=== PATIENT | male | born 1965 | race Hispanic/Latino ===

== ENCOUNTER 2020-10-27 08:01 | Inpatient (IN) | payer BC ==
[2020-10-27] VITALS (13 sets, daily range): BP systolic 107–130; BP diastolic 40–87
[~2020-10-27] VITALS: Ht 167.6 cm; Wt 130.6 kg
[2020-10-27 12:04] LABS: ABG BASE EXCESS -0.7 mmol/L (-2.0-3.0); ABG HCO3 23.9 mmol/L (21.0-28.0); ABG OXYGEN SATURATION 93.6 % (95.0-99.0); ABG PCO2 40 mmHg (35-48)
[2020-10-27] MEDS ORDERED: DIATR MEGLU/DIATRIZOATE SODIUM 30 ML BOTTLE ONE (12:23)
[2020-10-27 12:29] LABS: HEMATOCRIT 23.6 % (42-54); MEAN CORPUSCULAR HEMOGLOBIN 30.4 pg (27.0-33.0); MEAN CORPUSCULAR HGB CONC 31.8 g/dL (32.0-36.0); MEAN CORPUSCULAR VOLUME 95.5 fL (79-99); NUCLEATED RED BLOOD CELLS 0.4 % (0.0-0.19); PLATELET COUNT (AUTO) 126 K/uL (130-400); RED BLOOD CELL COUNT(AUTO) 2.47 MIL/uL (4.50-6.20); RED CELL DISTRIBUTION WIDTH 20.3 % (11.0-15.5); WHITE BLOOD COUNT (AUTO) 7.7 K/uL (4.8-10.8)
[2020-10-27] MEDS: LACTATED RINGERS 1000ML 1,000 ML IV SCH (12:30)
[2020-10-27 12:45] LABS: CREATININE 0.9 mg/dL (0.5-1.5); POTASSIUM 4.3 mmol/L (3.5-5.1)
[2020-10-27 12:49] LABS: BILIRUBIN,TOTAL 0.5 mg/dL (0.2-1.0)
[2020-10-27 13:47] LABS: BAND NEUTROPHILS % (MANUAL) 6 % (0-2); LYMPHOCYTES % (MANUAL) 15 % (22-44); MONOCYTES % (MANUAL) 8 % (2-9); SEGMENTED NEUTROPHILS % 71 % (40-70)
[2020-10-27 13:48] LABS: MAN.DIFF COMMENT-IMPRESSION MANUAL DIFFERENTIAL
[2020-10-27 13:49] LABS: PLATELET MORPHOLOGY COMMENT DECREASED
[2020-10-27] MEDS: DIAZEPAM 5 MG TABLET PEG SCH ×2 (14:00→22:00)
[2020-10-27] MEDS: METRONIDAZOLE 500MG/100ML BAG 100 ML IVPB SCH ×2 (14:49→23:51)
[2020-10-27] MEDS: CEFEPIME HCL 2 GM VIAL IVP SCH ×2 (14:50→21:54)
[2020-10-27 15:01] LABS: FIBRINOGEN 632 mg/dL (180-350)
[2020-10-27] MEDS: LEVOFLOXACIN 750 MG/D5W 150 ML 150 ML IV SCH (17:52)
[2020-10-27 20:05] LABS: ABG BASE EXCESS 4.5 mmol/L (-2.0-3.0); ABG HCO3 28.8 mmol/L (21.0-28.0); ABG OXYGEN SATURATION 91.4 % (95.0-99.0); ABG PCO2 42 mmHg (35-48)
[2020-10-27] MEDS ORDERED: CLINIMIX-E4.25%AA/D5+LYT2000ML 2,000 ML IV SCH (21:00)
[2020-10-27] MEDS: ASCORBIC ACID 500 MG TAB PEG SCH (21:00)
[2020-10-27] MEDS: ATORVASTATIN 20 MG TABLET PEG SCH (21:00)
[2020-10-27] MEDS ORDERED: FAMOTIDINE 20MG TAB PEG SCH (21:00)
[2020-10-27] MEDS: FLUCONAZOLE 400 MG/NS 200 ML 200 ML IV SCH (21:54)
[2020-10-27] MEDS: ENOXAPARIN SODIUM 40 MG/0.4 ML SYRINGE SQ SCH (22:00)
[2020-10-27] MEDS: CHLORHEXIDINE GLUCONATE 473 ML MOUTHWASH MM SCH (22:01)
[2020-10-28] VITALS (22 sets, daily range): BP systolic 112–149; BP diastolic 54–85
[2020-10-28] MEDS ORDERED: NOREPINEPHRIN 4MG/NS 250ML 250 ML IV PRN (00:45)
[2020-10-28] MEDS ORDERED: FENTANYL CITRATE PF 0.05 MG/ML 1,000 MCG in 0.9%NACL 100ML 100 ML IVPB PRN (00:45)
[2020-10-28] MEDS: DIAZEPAM 5 MG TABLET PEG SCH ×3 (05:20→22:00)
[2020-10-28] MEDS: CEFEPIME HCL 2 GM VIAL IVP SCH ×3 (06:00→21:11)
[2020-10-28] MEDS: METRONIDAZOLE 500MG/100ML BAG 100 ML IVPB SCH ×3 (06:00→21:11)
[2020-10-28] MEDS: MIDAZOLAM 100MG-0.9% NS 100ML 50 ML IV PRN ×2 (06:44→20:59)
[2020-10-28] MEDS: LACTATED RINGERS 1000ML 1,000 ML IV SCH (06:53)
[2020-10-28 07:49] LABS: HEMATOCRIT 23.3 % (42-54); MEAN CORPUSCULAR HEMOGLOBIN 29.7 pg (27.0-33.0); MEAN CORPUSCULAR HGB CONC 31.3 g/dL (32.0-36.0); MEAN CORPUSCULAR VOLUME 94.7 fL (79-99); NUCLEATED RED BLOOD CELLS 0.8 % (0.0-0.19); RED BLOOD CELL COUNT(AUTO) 2.46 MIL/uL (4.50-6.20); RED CELL DISTRIBUTION WIDTH 20.3 % (11.0-15.5); WHITE BLOOD COUNT (AUTO) 8.9 K/uL (4.8-10.8)
[2020-10-28 08:00] LABS: CREATININE 0.6 mg/dL (0.5-1.5); POTASSIUM 4.2 mmol/L (3.5-5.1)
[2020-10-28] MEDS ORDERED: ALBUMIN (HUMAN) 5% 250 ML IV SCH ×2 (08:15→09:00)
[2020-10-28] MEDS: LACTULOSE 20 GM/30 ML UDCUP PEG SCH (08:19)
[2020-10-28] MEDS: ASCORBIC ACID 500 MG TAB PEG SCH ×2 (08:19→21:00)
[2020-10-28] MEDS: CHLORHEXIDINE GLUCONATE 473 ML MOUTHWASH MM SCH ×2 (08:19→22:02)
[2020-10-28] MEDS: INSULIN LISPRO 100 UNIT/ML 3ML SQ SCH (08:19)
[2020-10-28] MEDS: METOPROLOL TARTRATE 1 MG/ML 5ML VIAL IV SCH ×3 (08:51→22:29)
[2020-10-28] MEDS: ENOXAPARIN SODIUM 40 MG/0.4 ML SYRINGE SQ SCH ×2 (08:52→21:00)
[2020-10-28] MEDS: FAMOTIDINE 20MG VIAL IV SCH ×2 (08:52→21:11)
[2020-10-28] MEDS: LEVOFLOXACIN 750 MG/D5W 150 ML 150 ML IV SCH (17:10)
[2020-10-28] MEDS: FUROSEMIDE 20MG VIAL IV SCH (17:10)
[2020-10-28 19:27] LABS: INR 1.37 (0.85-1.15); PROTHROMBIN TIME 14.5 SEC (9.6-11.6)
[2020-10-28] MEDS: ATORVASTATIN 20 MG TABLET PEG SCH (21:00)
[2020-10-28] MEDS ORDERED: CLINIMIX-E4.25%AA/D5+LYT2000ML 2,000 ML IV NR (21:00)
[2020-10-28] MEDS: FLUCONAZOLE 400 MG/NS 200 ML 200 ML IV SCH (22:02)
[2020-10-29] VITALS (24 sets, daily range): BP systolic 131–167; BP diastolic 53–79
[2020-10-29] MEDS: METOPROLOL TARTRATE 1 MG/ML 5ML VIAL IV SCH ×4 (02:55→20:47)
[2020-10-29 05:06] LABS: INR 1.47 (0.85-1.15); PROTHROMBIN TIME 15.5 SEC (9.6-11.6)
[2020-10-29 05:07] LABS: PARTIAL THROMBOPLASTIN TIME 43.3 SEC (26.3-35.5)
[2020-10-29] MEDS: FUROSEMIDE 20MG VIAL IV SCH ×3 (05:07→22:32)
[2020-10-29] MEDS: DIAZEPAM 5 MG TABLET PEG SCH ×4 (05:14→20:09)
[2020-10-29 05:16] LABS: CREATININE 0.9 mg/dL (0.5-1.5); POTASSIUM 4.5 mmol/L (3.5-5.1)
[2020-10-29] MEDS: CEFEPIME HCL 2 GM VIAL IVP SCH (05:43)
[2020-10-29] MEDS: METRONIDAZOLE 500MG/100ML BAG 100 ML IVPB SCH (05:43)
[2020-10-29 06:14] LABS: HEMATOCRIT 22.6 % (42-54); MEAN CORPUSCULAR HEMOGLOBIN 29.3 pg (27.0-33.0); MEAN CORPUSCULAR HGB CONC 30.1 g/dL (32.0-36.0); MEAN CORPUSCULAR VOLUME 97.4 fL (79-99); NUCLEATED RED BLOOD CELLS 0.5 % (0.0-0.19); RED BLOOD CELL COUNT(AUTO) 2.32 MIL/uL (4.50-6.20); RED CELL DISTRIBUTION WIDTH 20.7 % (11.0-15.5); WHITE BLOOD COUNT (AUTO) 12.1 K/uL (4.8-10.8)
[2020-10-29 06:27] LABS: ABG HCO3 28.1 mmol/L (21.0-28.0); ABG OXYGEN SATURATION 71.4 % (95.0-99.0); ABG PCO2 53 mmHg (35-48)
[2020-10-29] MEDS ORDERED: SOLU-MEDROL 125MG VIAL ONE (07:03)
[2020-10-29] MEDS ORDERED: PHARMACY COMMUNICATION MISC SCH (07:45)
[2020-10-29] MEDS ORDERED: VANCOMYCIN PROTOCOL PER PHARMACY IV SCH (07:45)
[2020-10-29] MEDS ORDERED: VANCOMYCIN 1G 1.75 GM in 0.9% NACL 250ML 250 ML IV SCH (08:00)
[2020-10-29] MEDS ORDERED: COMPOUND IV REFRIGERATED 1 EACH IVSOLN MISC PRN (08:15)
[2020-10-29] MEDS: MEROPENEM 1 GM VIAL IVP SCH ×2 (08:35→17:40)
[2020-10-29] MEDS: FAMOTIDINE 20MG VIAL IV SCH ×2 (08:35→20:46)
[2020-10-29] MEDS: ASCORBIC ACID 500 MG TAB PEG SCH ×2 (08:35→20:07)
[2020-10-29] MEDS: CHLORHEXIDINE GLUCONATE 473 ML MOUTHWASH MM SCH ×2 (08:35→20:48)
[2020-10-29] MEDS: LACTULOSE 20 GM/30 ML UDCUP PEG SCH (08:35)
[2020-10-29] MEDS ORDERED: SUCCINYLCHOLINE CHLORIDE 20 MG/ML 10 ML VIAL ONE (08:44)
[2020-10-29] MEDS ORDERED: DEXAMETHASONE SOD PHOSPHATE 10MG/ML 1ML VIAL ONE (08:44)
[2020-10-29] MEDS ORDERED: FENTANYL CITRATE PF 50 MCG/1 ML 2ML VIAL ONE (08:44)
[2020-10-29] MEDS ORDERED: ONDANSETRON 4MG INJ ONE (08:44)
[2020-10-29] MEDS ORDERED: GLYCOPYRROLATE 1 MG/5 ML SYRINGE ONE (08:44)
[2020-10-29] MEDS ORDERED: LIDOCAINE PF 100MG/5ML (2%) SYRINGE 5ML ONE (08:44)
[2020-10-29] MEDS ORDERED: PROPOFOL 10 MG/ML 20ML VIAL IV ONE (08:44)
[2020-10-29] MEDS ORDERED: ROCURONIUM 10MG/1ML SYR 10 MG/ML ML ONE (08:45)
[2020-10-29] MEDS ORDERED: MIDAZOLAM HCL 1 MG/ML 2ML VIAL ONE (08:45)
[2020-10-29] MEDS ORDERED: NEOSTIGMINE 5MG/5ML SYR IV ONE (08:45)
[2020-10-29] MEDS: INSULIN LISPRO 100 UNIT/ML 3ML SQ SCH (09:00)
[2020-10-29] MEDS ORDERED: 0.9% NACL 250ML 250 ML IV ONE (09:15)
[2020-10-29] MEDS: MIDAZOLAM 100MG-0.9% NS 100ML 50 ML IV PRN ×2 (09:23→20:31)
[2020-10-29] MEDS: ROCURONIUM BROMIDE 100 MG in 0.9%NACL 100ML 100 ML IV NR ×2 (09:23→12:35)
[2020-10-29] MEDS: FENTANYL 2500MCG+NS 250ML 250 ML IV SCH ×2 (12:33→21:16)
[2020-10-29] MEDS ORDERED: SOLU-MEDROL 125MG VIAL IVP SCH (14:00)
[2020-10-29 14:21] LABS: ABG BASE EXCESS -5.6 mmol/L (-2.0-3.0); ABG HCO3 26.2 mmol/L (21.0-28.0); ABG PCO2 85 mmHg (35-48)
[2020-10-29] MEDS: ROCURONIUM BROMIDE IV NR ×3 (15:29→20:23)
[2020-10-29] MEDS: [UNRECOGNIZED DRUG - OTHER] IV NR ×3 (15:29→20:23)
[2020-10-29] MEDS ORDERED: CLINIMIX-E 5%AA /D15%W 2000ML 2,000 ML IV NR (15:30)
[2020-10-29 16:50] LABS: HEMATOCRIT 25.3 % (42-54)
[2020-10-29] MEDS: LEVOFLOXACIN 750 MG/D5W 150 ML 150 ML IV SCH (17:40)
[2020-10-29 18:00] LABS: POTASSIUM 6.2 mmol/L (3.5-5.1)
[2020-10-29] MEDS: ATORVASTATIN 20 MG TABLET PEG SCH (20:07)
[2020-10-29 20:30] LABS: ABG BASE EXCESS -3.7 mmol/L (-2.0-3.0); ABG HCO3 26.8 mmol/L (21.0-28.0); ABG OXYGEN SATURATION 77.2 % (95.0-99.0); ABG PCO2 75 mmHg (35-48)
[2020-10-29 20:46] LABS: ABG BASE EXCESS -5.1 mmol/L (-2.0-3.0); ABG HCO3 25.2 mmol/L (21.0-28.0); ABG OXYGEN SATURATION 77.1 % (95.0-99.0); ABG PCO2 71 mmHg (35-48)
[2020-10-29] MEDS: VANCOMYCIN 1G 1.25 GM in 0.9% NACL 250ML 250 ML IV SCH (20:46)
[2020-10-29] MEDS: FLUCONAZOLE 400 MG/NS 200 ML 200 ML IV SCH (22:33)
[2020-10-29] MEDS ORDERED: SODIUM BICARB 8.4% 50ML SYRINGE IVP SCH (23:45)
[2020-10-30] VITALS (24 sets, daily range): BP systolic 128–145; BP diastolic 61–71
[2020-10-30] MEDS ORDERED: SODIUM BICARB 50MEQ 50ML VIAL 50 ML ONE (00:24)
[2020-10-30] MEDS: MEROPENEM 1 GM VIAL IVP SCH ×3 (00:29→14:17)
[2020-10-30] MEDS: [UNRECOGNIZED DRUG - OTHER] IV NR ×5 (00:50→22:50)
[2020-10-30] MEDS: ROCURONIUM BROMIDE IV NR ×5 (00:50→22:50)
[2020-10-30] MEDS: METOPROLOL TARTRATE 1 MG/ML 5ML VIAL IV SCH ×4 (04:53→20:54)
[2020-10-30 05:33] LABS: BASOPHILS % (AUTO) 0.3 % (0.0-5.0); EOSINOPHILS % (AUTO) 0.3 % (0.0-8.0); HEMATOCRIT 24.4 % (42-54); LYMPHOCYTES % (AUTO) 7.6 % (21.0-51.0); MEAN CORPUSCULAR HEMOGLOBIN 29.9 pg (27.0-33.0); MEAN CORPUSCULAR HGB CONC 31.1 g/dL (32.0-36.0); MEAN CORPUSCULAR VOLUME 96.1 fL (79-99); MONOCYTES % (AUTO) 5.8 % (3.0-13.0); NEUTROPHILS % (AUTO) 80.8 % (40.0-77.0); NUCLEATED RED BLOOD CELLS 1.8 % (0.0-0.19); PLATELET COUNT (AUTO) 182 K/uL (130-400); RED BLOOD CELL COUNT(AUTO) 2.54 MIL/uL (4.50-6.20); WHITE BLOOD COUNT (AUTO) 10.3 K/uL (4.8-10.8)
[2020-10-30 05:58] LABS: CREATININE 1.4 mg/dL (0.5-1.5); MAGNESIUM 1.7 mg/dL (1.80-2.40); POTASSIUM 5.5 mmol/L (3.5-5.1)
[2020-10-30 06:05] LABS: INR 1.74 (0.85-1.15)
[2020-10-30 06:06] LABS: PARTIAL THROMBOPLASTIN TIME 49.4 SEC (26.3-35.5)
[2020-10-30] MEDS: DIAZEPAM 5 MG TABLET PEG SCH ×2 (07:18→19:59)
[2020-10-30] MEDS: LACTULOSE 20 GM/30 ML UDCUP PEG SCH (07:18)
[2020-10-30] MEDS: ASCORBIC ACID 500 MG TAB PEG SCH ×2 (07:18→19:59)
[2020-10-30 07:38] LABS: ABG BASE EXCESS -5.4 mmol/L (-2.0-3.0); ABG HCO3 24.2 mmol/L (21.0-28.0); ABG OXYGEN SATURATION 77.5 % (95.0-99.0); ABG PCO2 66 mmHg (35-48)
[2020-10-30] MEDS: FUROSEMIDE 20MG VIAL IV SCH ×3 (07:43→21:46)
[2020-10-30] MEDS: MIDAZOLAM 100MG-0.9% NS 100ML 50 ML IV PRN ×2 (07:47→18:12)
[2020-10-30] MEDS: FENTANYL 2500MCG+NS 250ML 250 ML IV SCH ×2 (07:55→18:00)
[2020-10-30] MEDS: MAGNESIUM 2GM PREMIX 50ML 50 ML IV PRN (07:59)
[2020-10-30] MEDS: FAMOTIDINE 20MG VIAL IV SCH ×2 (08:20→20:57)
[2020-10-30] MEDS: CHLORHEXIDINE GLUCONATE 473 ML MOUTHWASH MM SCH ×2 (08:24→20:58)
[2020-10-30] MEDS: INSULIN LISPRO 100 UNIT/ML 3ML SQ SCH (08:31)
[2020-10-30] MEDS: VANCOMYCIN 1G 1.25 GM in 0.9% NACL 250ML 250 ML IV SCH ×2 (10:29→20:56)
[2020-10-30] MEDS: INSULIN HUMULIN R 100 UNIT/ML 3ML SQ SCH ×2 (11:55→18:24)
[2020-10-30] MEDS ORDERED: CLINIMIX-E 5%AA /D15%W 2000ML 2,000 ML IV ONE (14:00)
[2020-10-30] MEDS: ALBUMIN (HUMAN) 25% 100 ML IV SCH ×2 (14:17→21:47)
[2020-10-30] MEDS ORDERED: CLINIMIX-E4.25%AA/D5+LYT2000ML 2,000 ML IV SCH (16:00)
[2020-10-30] MEDS: LEVOFLOXACIN 750 MG/D5W 150 ML 150 ML IV SCH (17:36)
[2020-10-30] MEDS: ATORVASTATIN 20 MG TABLET PEG SCH (19:59)
[2020-10-30] MEDS: FLUCONAZOLE 400 MG/NS 200 ML 200 ML IV SCH (22:47)
[2020-10-31] VITALS (26 sets, daily range): BP systolic 101–182; BP diastolic 60–80
[2020-10-31] MEDS: INSULIN HUMULIN R 100 UNIT/ML 3ML SQ SCH ×4 (01:16→18:00)
[2020-10-31 03:25] LABS: ABG BASE EXCESS -8.3 mmol/L (-2.0-3.0); ABG HCO3 20.9 mmol/L (21.0-28.0); ABG OXYGEN SATURATION 89.1 % (95.0-99.0); ABG PCO2 59 mmHg (35-48)
[2020-10-31] MEDS: METOPROLOL TARTRATE 1 MG/ML 5ML VIAL IV SCH ×4 (03:35→20:05)
[2020-10-31] MEDS: ROCURONIUM BROMIDE IV NR ×2 (03:36→20:53)
[2020-10-31] MEDS: [UNRECOGNIZED DRUG - OTHER] IV NR ×2 (03:36→20:53)
[2020-10-31] MEDS: FENTANYL 2500MCG+NS 250ML 250 ML IV SCH ×3 (03:38→21:26)
[2020-10-31] MEDS: MIDAZOLAM 100MG-0.9% NS 100ML 50 ML IV PRN (03:42)
[2020-10-31] MEDS: DIAZEPAM 5 MG TABLET PEG SCH ×3 (04:53→20:43)
[2020-10-31 05:50] LABS: BASOPHILS % (AUTO) 0.4 % (0.0-5.0); EOSINOPHILS % (AUTO) 0.2 % (0.0-8.0); HEMATOCRIT 22.6 % (42-54); LYMPHOCYTES % (AUTO) 4.2 % (21.0-51.0); MEAN CORPUSCULAR HEMOGLOBIN 30.2 pg (27.0-33.0); MEAN CORPUSCULAR HGB CONC 31.4 g/dL (32.0-36.0); MEAN CORPUSCULAR VOLUME 96.2 fL (79-99); MONOCYTES % (AUTO) 7.7 % (3.0-13.0); NUCLEATED RED BLOOD CELLS 12.2 % (0.0-0.19); PLATELET COUNT (AUTO) 130 K/uL (130-400); RED BLOOD CELL COUNT(AUTO) 2.35 MIL/uL (4.50-6.20); RED CELL DISTRIBUTION WIDTH 20.6 % (11.0-15.5); WHITE BLOOD COUNT (AUTO) 20.9 K/uL (4.8-10.8)
[2020-10-31 05:57] LABS: CREATININE 1.7 mg/dL (0.5-1.5); MAGNESIUM 2.2 mg/dL (1.80-2.40)
[2020-10-31 07:07] LABS: BAND NEUTROPHILS % (MANUAL) 6 % (0-2); LYMPHOCYTES % (MANUAL) 9 % (22-44); MAN.DIFF COMMENT-IMPRESSION MANUAL DIFFERENTIAL; MONOCYTES % (MANUAL) 12 % (2-9); PLATELET MORPHOLOGY COMMENT ADEQUATE; SEGMENTED NEUTROPHILS % 73 % (40-70)
[2020-10-31] MEDS: ASCORBIC ACID 500 MG TAB PEG SCH ×2 (08:46→20:43)
[2020-10-31] MEDS: LACTULOSE 20 GM/30 ML UDCUP PEG SCH (08:46)
[2020-10-31] MEDS: MEROPENEM 1 GM VIAL IVP SCH ×3 (08:47→16:27)
[2020-10-31] MEDS: FAMOTIDINE 20MG VIAL IV SCH ×2 (08:47→20:07)
[2020-10-31] MEDS: ALBUMIN (HUMAN) 25% 100 ML IV SCH ×2 (08:49→20:06)
[2020-10-31] MEDS: FUROSEMIDE 20MG VIAL IV SCH ×2 (08:50→20:07)
[2020-10-31] MEDS: CHLORHEXIDINE GLUCONATE 473 ML MOUTHWASH MM SCH ×2 (08:51→20:45)
[2020-10-31] MEDS: INSULIN LISPRO 100 UNIT/ML 3ML SQ SCH (08:56)
[2020-10-31] MEDS: VANCOMYCIN 1G 1.25 GM in 0.9% NACL 250ML 250 ML IV SCH ×3 (09:00→22:13)
[2020-10-31] MEDS ORDERED: METOPROLOL TARTRATE 1 MG/ML 5ML VIAL IV SCH ×3 (09:15→09:30)
[2020-10-31] MEDS: TRYPSIN/BALSAM PERU/CASTOR OIL OINT 60GM TUBE TP SCH (14:40)
[2020-10-31] MEDS: LEVOFLOXACIN 750 MG/D5W 150 ML 150 ML IV SCH (16:27)
[2020-10-31 20:07] LABS: CREATININE 1.8 mg/dL (0.5-1.5)
[2020-10-31 20:20] LABS: POTASSIUM 6.2 mmol/L (3.5-5.1)
[2020-10-31] MEDS: ATORVASTATIN 20 MG TABLET PEG SCH (20:43)
[2020-10-31] MEDS ORDERED: CALCIUM GLUC 1GM/10ML VIAL IV SCH (20:45)
[2020-10-31] MEDS ORDERED: KAYEXALATE 15GM/60ML ONE (21:20)
[2020-10-31] MEDS ORDERED: KAYEXALATE 15GM/60ML RC SCH (21:30)
[2020-10-31] MEDS ORDERED: CALCIUM GLUC 1GM 1 GM in 0.9%NACL 100ML 100 ML IV SCH (22:00)
[2020-10-31] MEDS ORDERED: CLINIMIX-E4.25%AA/D5+LYT2000ML 2,000 ML IV SCH (22:15)
[2020-10-31] MEDS ORDERED: SODIUM BICARB 50MEQ 50ML VIAL IV ONE (22:15)
[2020-10-31] MEDS: FLUCONAZOLE 400 MG/NS 200 ML 200 ML IV SCH (22:20)
[2020-10-31] MEDS ORDERED: CALCIUM GLUC 1GM/10ML VIAL IV ONE (22:29)
[2020-10-31] MEDS: INSULIN HUMULIN R 100 UNIT/ML 3ML IV SCH (22:31)
[2020-10-31] MEDS: DEXTROSE 50%-WATER 25 GM/50 ML VIAL IV SCH (22:32)
[2020-10-31] MEDS: FUROSEMIDE 40MG VIAL IV SCH (23:02)
[2020-11-01] VITALS (35 sets, daily range): BP systolic 73–139; BP diastolic 48–88
[2020-11-01] MEDS: MEROPENEM 1 GM VIAL IVP SCH ×3 (00:09→16:14)
[2020-11-01] MEDS: METOPROLOL TARTRATE 1 MG/ML 5ML VIAL IV SCH ×4 (02:42→20:42)
[2020-11-01] MEDS: DIAZEPAM 5 MG TABLET PEG SCH ×3 (03:10→22:00)
[2020-11-01 04:06] LABS: CREATININE 1.8 mg/dL (0.5-1.5)
[2020-11-01] MEDS: INSULIN HUMULIN R 100 UNIT/ML 3ML SQ SCH ×4 (06:00→18:00)
[2020-11-01] MEDS: [UNRECOGNIZED DRUG - OTHER] IV NR (06:31)
[2020-11-01] MEDS: ROCURONIUM BROMIDE IV NR (06:31)
[2020-11-01] MEDS: MIDAZOLAM 100MG-0.9% NS 100ML 50 ML IV PRN (06:32)
[2020-11-01] MEDS: FAMOTIDINE 20MG VIAL IV SCH ×2 (08:56→22:42)
[2020-11-01] MEDS: INSULIN LISPRO 100 UNIT/ML 3ML SQ SCH (08:59)
[2020-11-01] MEDS: CHLORHEXIDINE GLUCONATE 473 ML MOUTHWASH MM SCH ×2 (09:00→22:45)
[2020-11-01] MEDS: LACTULOSE 20 GM/30 ML UDCUP PEG SCH (09:00)
[2020-11-01] MEDS: ASCORBIC ACID 500 MG TAB PEG SCH ×2 (09:00→21:00)
[2020-11-01] MEDS: TRYPSIN/BALSAM PERU/CASTOR OIL OINT 60GM TUBE TP SCH (09:01)
[2020-11-01] MEDS: FENTANYL 2500MCG+NS 250ML 250 ML IV SCH (09:09)
[2020-11-01 09:57] LABS: ABG HCO3 22.3 mmol/L (21.0-28.0); ABG OXYGEN SATURATION 96.1 % (95.0-99.0); ABG PCO2 45 mmHg (35-48)
[2020-11-01 10:09] LABS: BASOPHILS % (AUTO) 0.5 % (0.0-5.0); EOSINOPHILS % (AUTO) 0.1 % (0.0-8.0); HEMATOCRIT 22.8 % (42-54); MEAN CORPUSCULAR HEMOGLOBIN 29.8 pg (27.0-33.0); MEAN CORPUSCULAR VOLUME 93.1 fL (79-99); MONOCYTES % (AUTO) 5.1 % (3.0-13.0); NEUTROPHILS % (AUTO) 69.5 % (40.0-77.0); NUCLEATED RED BLOOD CELLS 14.4 % (0.0-0.19); PLATELET COUNT (AUTO) 87 K/uL (130-400); RED BLOOD CELL COUNT(AUTO) 2.45 MIL/uL (4.50-6.20); RED CELL DISTRIBUTION WIDTH 21.6 % (11.0-15.5); WHITE BLOOD COUNT (AUTO) 27.8 K/uL (4.8-10.8)
[2020-11-01 10:18] LABS: CREATININE 1.9 mg/dL (0.5-1.5); POTASSIUM 5.6 mmol/L (3.5-5.1)
[2020-11-01 10:23] LABS: TOTAL PROTEIN, SERUM 5.8 g/dL (6.0-8.3)
[2020-11-01 10:28] LABS: INR 1.63 (0.85-1.15)
[2020-11-01 10:29] LABS: PARTIAL THROMBOPLASTIN TIME 49.5 SEC (26.3-35.5)
[2020-11-01 11:13] LABS: BAND NEUTROPHILS % (MANUAL) 1 % (0-2); LYMPHOCYTES % (MANUAL) 12 % (22-44); MAN.DIFF COMMENT-IMPRESSION MANUAL DIFFERENTIAL; METAMYELOCYTES % 4 % (0-0); MONOCYTES % (MANUAL) 4 % (2-9); MYELOCYTES % 3 % (0-0); PROMYELOCYTES % 3 (0-0); SEGMENTED NEUTROPHILS % 73 % (40-70)
[2020-11-01 11:14] LABS: PLATELET MORPHOLOGY COMMENT DECREASED
[2020-11-01] MEDS ORDERED: SODIUM BICARB 50MEQ 50ML VIAL IV SCH (11:20)
[2020-11-01] MEDS ORDERED: 0.9%NACL 1000ML 1,000 ML IV SCH (11:45)
[2020-11-01] MEDS ORDERED: SOLU-MEDROL 125MG VIAL IVP SCH (13:00)
[2020-11-01] MEDS ORDERED: DEXTROSE 50%-WATER 50 ML DISP.SYRIN IV ONE (13:11)
[2020-11-01 14:11] LABS: ABG HCO3 23.2 mmol/L (21.0-28.0); ABG OXYGEN SATURATION 95.6 % (95.0-99.0); ABG PCO2 41 mmHg (35-48)
[2020-11-01] MEDS ORDERED: FUROSEMIDE 40MG VIAL IV SCH (15:45)
[2020-11-01] MEDS ORDERED: ROCURONIUM 10MG/1ML SYR 10 MG/ML ML ONE (16:17)
[2020-11-01] MEDS ORDERED: PROPOFOL 10 MG/ML 20ML VIAL IV ONE (16:18)
[2020-11-01] MEDS: CACL 1GM SYG IVP SCH (16:30)
[2020-11-01] MEDS ORDERED: ALBUTEROL INHALER 90MCG/INH IH ONE (17:11)
[2020-11-01 17:13] LABS: ABG BASE EXCESS -2.3 mmol/L (-2.0-3.0); ABG HCO3 23.6 mmol/L (21.0-28.0); ABG OXYGEN SATURATION 93.3 % (95.0-99.0); ABG PCO2 46 mmHg (35-48)
[2020-11-01 17:38] LABS: HEMATOCRIT 24.9 % (42-54); MEAN CORPUSCULAR HEMOGLOBIN 29.5 pg (27.0-33.0); MEAN CORPUSCULAR HGB CONC 32.1 g/dL (32.0-36.0); MEAN CORPUSCULAR VOLUME 91.9 fL (79-99); NUCLEATED RED BLOOD CELLS 18.2 % (0.0-0.19); PLATELET COUNT (AUTO) 130 K/uL (130-400); RED BLOOD CELL COUNT(AUTO) 2.71 MIL/uL (4.50-6.20); RED CELL DISTRIBUTION WIDTH 20.5 % (11.0-15.5); WHITE BLOOD COUNT (AUTO) 27.3 K/uL (4.8-10.8)
[2020-11-01 17:47] LABS: CREATININE 1.9 mg/dL (0.5-1.5); POTASSIUM 5.8 mmol/L (3.5-5.1)
[2020-11-01 17:49] LABS: INR 1.38 (0.85-1.15); PROTHROMBIN TIME 14.6 SEC (9.6-11.6)
[2020-11-01 17:50] LABS: PARTIAL THROMBOPLASTIN TIME 37.2 SEC (26.3-35.5)
[2020-11-01 17:51] LABS: ALBUMIN 2.2 g/dL (3.5-5.0); BILIRUBIN,TOTAL 1.1 mg/dL (0.2-1.0); TOTAL PROTEIN, SERUM 6.3 g/dL (6.0-8.3)
[2020-11-01 17:52] LABS: ABG BASE EXCESS -3.9 mmol/L (-2.0-3.0); ABG HCO3 21.3 mmol/L (21.0-28.0); ABG OXYGEN SATURATION 88.4 % (95.0-99.0); ABG PCO2 39 mmHg (35-48)
[2020-11-01] MEDS ORDERED: GLYCOPYRROLATE 1 MG/5 ML SYRINGE ONE (17:56)
[2020-11-01] MEDS ORDERED: NEOSTIGMINE 5MG/5ML SYR IV ONE (18:00)
[2020-11-01] MEDS ORDERED: SODIUM BICARB 8.4% 50ML SYRINGE ONE (18:02)
[2020-11-01] MEDS ORDERED: FUROSEMIDE 100MG VIAL IVP SCH (18:45)
[2020-11-01 19:15] LABS: ABG BASE EXCESS -4.5 mmol/L (-2.0-3.0); ABG HCO3 21.9 mmol/L (21.0-28.0); ABG OXYGEN SATURATION 90.4 % (95.0-99.0); ABG PCO2 47 mmHg (35-48)
[2020-11-01] MEDS ORDERED: SODIUM BICARB 50MEQ 50ML VIAL 100 ML ONE (19:17)
[2020-11-01] MEDS ORDERED: 0.9%NACL 1000ML 1,000 ML IV ONE ×2 (19:34→20:35)
[2020-11-01] MEDS ORDERED: PHENYLEPHRINE HCL 10 MG/ML 1ML VIAL IV ONE (20:17)
[2020-11-01 20:25] LABS: ALBUMIN 1.7 g/dL (3.5-5.0); BILIRUBIN,TOTAL 0.9 mg/dL (0.2-1.0); TOTAL PROTEIN, SERUM 4.6 g/dL (6.0-8.3)
[2020-11-01 20:30] LABS: POTASSIUM 6.1 mmol/L (3.5-5.1)
[2020-11-01] MEDS ORDERED: NOREPINEPHRIN 4MG/NS 250ML 250 ML IV SCH (20:30)
[2020-11-01] MEDS: FUROSEMIDE 40MG VIAL IV SCH (20:45)
[2020-11-01] MEDS: DEXTROSE 50%-WATER 25 GM/50 ML VIAL IV SCH (20:45)
[2020-11-01] MEDS: ATORVASTATIN 20 MG TABLET PEG SCH (21:00)
[2020-11-01] MEDS: VANCOMYCIN 1G 1.25 GM in 0.9% NACL 250ML 250 ML IV SCH (21:00)
[2020-11-01 21:04] LABS: ABG BASE EXCESS -11.7 mmol/L (-2.0-3.0); ABG HCO3 16.2 mmol/L (21.0-28.0); ABG OXYGEN SATURATION 90.8 % (95.0-99.0); ABG PCO2 46 mmHg (35-48)
[2020-11-01] MEDS ORDERED: SODIUM BICARB 50MEQ 50ML VIAL 150 ML ONE ×3 (21:06→23:33)
[2020-11-01] MEDS ORDERED: SODIUM BICARB 50MEQ 50ML VIAL 50 ML ONE ×2 (21:35→21:54)
[2020-11-01] MEDS ORDERED: 0.9% NACL 500ML IV.SOLN 1,000 ML IV ONE (21:42)
[2020-11-01] MEDS ORDERED: VASOPRESSIN 20 UNITS/ML 1ML VIAL ONE (21:56)
[2020-11-01] MEDS ORDERED: ESMOLOL HCL 10 MG/ML 10 ML VIAL ONE (21:58)
[2020-11-01] MEDS ORDERED: FENTANYL CITRATE PF 50 MCG/1 ML 2ML VIAL ONE (21:59)
[2020-11-01] MEDS ORDERED: VASOPRESSIN 40 UNITS in 0.9%NACL 50ML 40 ML IV PRN (22:00)
[2020-11-01] MEDS ORDERED: EPINEPHRINE PF 1MG AMP ONE ×2 (22:04→22:13)
[2020-11-01] MEDS ORDERED: 0.9%NACL 100ML 100 ML IV ONE (22:05)
[2020-11-01] MEDS ORDERED: 0.9%NACL 100ML 200 ML IV ONE (22:07)
[2020-11-01] MEDS ORDERED: 0.9% NACL 250ML 250 ML IV ONE (22:14)
[2020-11-01] MEDS: INSULIN HUMULIN R 100 UNIT/ML 3ML IV SCH (22:15)
[2020-11-01] MEDS: FLUCONAZOLE 400 MG/NS 200 ML 200 ML IV SCH (22:43)
[2020-11-01] MEDS: NOREPINEPHRINE BITARTRATE 8 MG in DEXTROSE 5%-WATER 250 ML IV PRN (22:54)
[2020-11-01] MEDS ORDERED: NITROGLYCERIN 50MG/D5W 250ML 1 BOT ONE (23:03)
[2020-11-01 23:31] LABS: ABG BASE EXCESS -17.5 mmol/L (-2.0-3.0); ABG OXYGEN SATURATION 86.6 % (95.0-99.0); ABG PCO2 43 mmHg (35-48)
[2020-11-01 23:33] LABS: BASOPHILS % (AUTO) 0.4 % (0.0-5.0); HEMATOCRIT 33.2 % (42-54); LYMPHOCYTES % (AUTO) 19.3 % (21.0-51.0); MEAN CORPUSCULAR HEMOGLOBIN 29.3 pg (27.0-33.0); MEAN CORPUSCULAR HGB CONC 31.9 g/dL (32.0-36.0); MEAN CORPUSCULAR VOLUME 91.7 fL (79-99); MONOCYTES % (AUTO) 6.1 % (3.0-13.0); NUCLEATED RED BLOOD CELLS 17.5 % (0.0-0.19); PLATELET COUNT (AUTO) 100 K/uL (130-400); RED BLOOD CELL COUNT(AUTO) 3.62 MIL/uL (4.50-6.20); RED CELL DISTRIBUTION WIDTH 16.8 % (11.0-15.5)
[2020-11-01 23:46] LABS: INR 1.53 (0.85-1.15)
[2020-11-01 23:47] LABS: PARTIAL THROMBOPLASTIN TIME 44.4 SEC (26.3-35.5)
[2020-11-01] MEDS ORDERED: SODIUM BICARB 50MEQ 50ML VIAL 250 ML ONE (23:52)
[2020-11-02] VITALS (34 sets, daily range): BP systolic 83–150; BP diastolic 52–89
[2020-11-02] MEDS ORDERED: ESMOLOL HCL 10 MG/ML 10 ML VIAL ONE ×3 (00:07→19:51)
[2020-11-02 00:08] LABS: ALBUMIN 2.1 g/dL (3.5-5.0); BILIRUBIN,TOTAL 1.4 mg/dL (0.2-1.0); CREATININE 2.2 mg/dL (0.5-1.5); TOTAL PROTEIN, SERUM 5.4 g/dL (6.0-8.3)
[2020-11-02 00:23] LABS: ABG BASE EXCESS -4.2 mmol/L (-2.0-3.0); ABG HCO3 22.3 mmol/L (21.0-28.0); ABG OXYGEN SATURATION 81.8 % (95.0-99.0); ABG PCO2 48 mmHg (35-48)
[2020-11-02 00:38] LABS: MAGNESIUM 2.4 mg/dL (1.80-2.40); PHOSPHORUS 10.8 mg/dL (2.5-4.9)
[2020-11-02] MEDS: LEVOFLOXACIN 750 MG/D5W 150 ML 150 ML IV SCH ×2 (00:47→17:51)
[2020-11-02] MEDS: MEROPENEM 1 GM VIAL IVP SCH ×2 (00:57→09:30)
[2020-11-02] MEDS ORDERED: COAGULATION FACTOR VIIA RECOMB 1 MG VIAL IV SCH ×3 (01:00→14:15)
[2020-11-02] MEDS: METOPROLOL TARTRATE 1 MG/ML 5ML VIAL IV SCH ×5 (01:11→20:04)
[2020-11-02] MEDS: DIAZEPAM 5 MG TABLET PEG SCH ×4 (01:12→20:06)
[2020-11-02] MEDS ORDERED: PHENYLEPHRINE HCL 10 MG/ML 1ML VIAL IV ONE (01:58)
[2020-11-02] MEDS ORDERED: EPINEPHRINE PF 1MG AMP 10 MG in 0.9% NACL 250ML 250 ML IV SCH (02:15)
[2020-11-02 02:24] LABS: ABG BASE EXCESS -15.7 mmol/L (-2.0-3.0); ABG OXYGEN SATURATION 75.6 % (95.0-99.0); ABG PCO2 42 mmHg (35-48)
[2020-11-02] MEDS ORDERED: SODIUM BICARB 50MEQ 50ML VIAL 200 ML ONE ×2 (02:28→02:40)
[2020-11-02] MEDS ORDERED: SODIUM BICARB 50 MEQ ONE (02:28)
[2020-11-02] MEDS ORDERED: DEXTROSE 5%-WATER 1,000 ML IV ONE (02:31)
[2020-11-02] MEDS ORDERED: 0.9% NACL 250ML 250 ML IV ONE (02:32)
[2020-11-02] MEDS ORDERED: SOLU-MEDROL 125MG VIAL ONE ×2 (02:40→17:04)
[2020-11-02] MEDS ORDERED: SODIUM BICARB 50MEQ 50ML VIAL 250 ML ONE ×2 (02:47→11:45)
[2020-11-02 03:21] LABS: BASOPHILS % (AUTO) 0.8 % (0.0-5.0); EOSINOPHILS % (AUTO) 0.1 % (0.0-8.0); HEMATOCRIT 27.6 % (42-54); LYMPHOCYTES % (AUTO) 11.8 % (21.0-51.0); MEAN CORPUSCULAR HEMOGLOBIN 30.6 pg (27.0-33.0); MEAN CORPUSCULAR HGB CONC 33.3 g/dL (32.0-36.0); MEAN CORPUSCULAR VOLUME 91.7 fL (79-99); MONOCYTES % (AUTO) 7.2 % (3.0-13.0); NEUTROPHILS % (AUTO) 50.6 % (40.0-77.0); NUCLEATED RED BLOOD CELLS 22.1 % (0.0-0.19); PLATELET COUNT (AUTO) 141 K/uL (130-400); RED BLOOD CELL COUNT(AUTO) 3.01 MIL/uL (4.50-6.20); RED CELL DISTRIBUTION WIDTH 15.1 % (11.0-15.5)
[2020-11-02 03:23] LABS: WHITE BLOOD COUNT (AUTO) 31.2 K/uL (4.8-10.8)
[2020-11-02 03:30] LABS: CREATININE 2.2 mg/dL (0.5-1.5); POTASSIUM 5.4 mmol/L (3.5-5.1)
[2020-11-02 03:35] LABS: INR 1.54 (0.85-1.15); PROTHROMBIN TIME 16.1 SEC (9.6-11.6)
[2020-11-02 03:36] LABS: PARTIAL THROMBOPLASTIN TIME 34.4 SEC (26.3-35.5)
[2020-11-02 03:46] LABS: ALBUMIN 2.2 g/dL (3.5-5.0); BILIRUBIN,TOTAL 2.2 mg/dL (0.2-1.0)
[2020-11-02 04:10] LABS: ABG BASE EXCESS -10.9 mmol/L (-2.0-3.0); ABG OXYGEN SATURATION 82.3 % (95.0-99.0); ABG PCO2 48 mmHg (35-48)
[2020-11-02] MEDS: DEXTROSE 5% IVP SCH ×2 (05:00→10:22)
[2020-11-02] MEDS: SODIUM BICARB 8.4% IVP SCH ×2 (05:00→10:22)
[2020-11-02] MEDS: SYRING IVP SCH ×2 (05:00→10:22)
[2020-11-02] MEDS ORDERED: PHENYLEPHRINE HCL 100 MG in 0.9% NACL 250ML 250 ML IV SCH (05:00)
[2020-11-02] MEDS: WATER IVP SCH ×2 (05:00→10:22)
[2020-11-02] MEDS ORDERED: PHARMACY COMMUNICATION MISC SCH ×2 (05:15→07:00)
[2020-11-02 05:43] LABS: ABG BASE EXCESS -14.2 mmol/L (-2.0-3.0); ABG OXYGEN SATURATION 75.5 % (95.0-99.0); ABG PCO2 43 mmHg (35-48)
[2020-11-02] MEDS: INSULIN HUMULIN R 100 UNIT/ML 3ML SQ SCH ×4 (06:00→18:00)
[2020-11-02] MEDS ORDERED: PROPOFOL 10 MG/ML 20ML VIAL IV ONE (06:15)
[2020-11-02] MEDS ORDERED: HUMAN PROTHROMBIN COMPLX(PCC) 500 UNIT KIT IV SCH (06:21)
[2020-11-02] MEDS ORDERED: SODIUM BICARB 50MEQ 50ML VIAL 150 ML ONE ×2 (07:21→07:58)
[2020-11-02 07:51] LABS: ABG BASE EXCESS -4.4 mmol/L (-2.0-3.0); ABG HCO3 21.4 mmol/L (21.0-28.0); ABG OXYGEN SATURATION 80.9 % (95.0-99.0); ABG PCO2 43 mmHg (35-48)
[2020-11-02 08:11] LABS: BASOPHILS % (AUTO) 1.3 % (0.0-5.0); EOSINOPHILS % (AUTO) 2.4 % (0.0-8.0); HEMATOCRIT 23.6 % (42-54); MEAN CORPUSCULAR HEMOGLOBIN 29.9 pg (27.0-33.0); MEAN CORPUSCULAR HGB CONC 33.9 g/dL (32.0-36.0); MEAN CORPUSCULAR VOLUME 88.1 fL (79-99); MONOCYTES % (AUTO) 7.2 % (3.0-13.0); NEUTROPHILS % (AUTO) 54.5 % (40.0-77.0); PLATELET COUNT (AUTO) 83 K/uL (130-400); RED BLOOD CELL COUNT(AUTO) 2.68 MIL/uL (4.50-6.20); RED CELL DISTRIBUTION WIDTH 14.6 % (11.0-15.5)
[2020-11-02 08:24] LABS: INR 1.06 (0.85-1.15); PROTHROMBIN TIME 11.5 SEC (9.6-11.6)
[2020-11-02 08:25] LABS: PARTIAL THROMBOPLASTIN TIME 30.3 SEC (26.3-35.5)
[2020-11-02] MEDS: HUMAN PROTHROMBIN COMPLX(PCC) 500 UNIT KIT IV SCH ×2 (08:45→20:02)
[2020-11-02] MEDS ORDERED: 0.9%NACL 1000ML 1,000 ML IV ONE ×2 (08:47→14:20)
[2020-11-02 08:49] LABS: POTASSIUM 5.2 mmol/L (3.5-5.1)
[2020-11-02] MEDS: INSULIN LISPRO 100 UNIT/ML 3ML SQ SCH (09:00)
[2020-11-02] MEDS: ASCORBIC ACID 500 MG TAB PEG SCH ×2 (09:00→20:01)
[2020-11-02] MEDS: TRYPSIN/BALSAM PERU/CASTOR OIL OINT 60GM TUBE TP SCH (09:00)
[2020-11-02] MEDS: CHLORHEXIDINE GLUCONATE 473 ML MOUTHWASH MM SCH ×2 (09:00→21:18)
[2020-11-02] MEDS ORDERED: ARTIFICIAL TEARS 3.5 GM OINTMENT OU SCH (09:00)
[2020-11-02] MEDS: VANCOMYCIN 1G 1.25 GM in 0.9% NACL 250ML 250 ML IV SCH ×2 (09:00→20:00)
[2020-11-02] MEDS: LACTULOSE 20 GM/30 ML UDCUP PEG SCH (09:00)
[2020-11-02 09:08] LABS: ALBUMIN 2.2 g/dL (3.5-5.0); CREATININE 2.2 mg/dL (0.5-1.5); TOTAL PROTEIN, SERUM 4.8 g/dL (6.0-8.3)
[2020-11-02] MEDS: FAMOTIDINE 20MG VIAL IV SCH ×2 (10:22→21:37)
[2020-11-02] MEDS ORDERED: ALBUMIN (HUMAN) 25% 100 ML IV ONE ×2 (11:20→20:36)
[2020-11-02 11:42] LABS: ABG BASE EXCESS -10.4 mmol/L (-2.0-3.0); ABG HCO3 16.1 mmol/L (21.0-28.0); ABG OXYGEN SATURATION 81.5 % (95.0-99.0); ABG PCO2 38 mmHg (35-48)
[2020-11-02 12:10] LABS: BASOPHILS % (AUTO) 0.7 % (0.0-5.0); EOSINOPHILS % (AUTO) 13.3 % (0.0-8.0); HEMATOCRIT 26.1 % (42-54); MEAN CORPUSCULAR HEMOGLOBIN 28.8 pg (27.0-33.0); MEAN CORPUSCULAR HGB CONC 33.7 g/dL (32.0-36.0); MEAN CORPUSCULAR VOLUME 85.3 fL (79-99); MONOCYTES % (AUTO) 8.2 % (3.0-13.0); NEUTROPHILS % (AUTO) 46.1 % (40.0-77.0); PLATELET COUNT (AUTO) 109 K/uL (130-400); RED BLOOD CELL COUNT(AUTO) 3.06 MIL/uL (4.50-6.20); RED CELL DISTRIBUTION WIDTH 15.5 % (11.0-15.5)
[2020-11-02 12:27] LABS: INR 1.44 (0.85-1.15); PROTHROMBIN TIME 15.2 SEC (9.6-11.6)
[2020-11-02 12:28] LABS: PARTIAL THROMBOPLASTIN TIME 26.3 SEC (26.3-35.5)
[2020-11-02 12:37] LABS: ALBUMIN 2.5 g/dL (3.5-5.0); BILIRUBIN,TOTAL 3.6 mg/dL (0.2-1.0); CREATININE 2.2 mg/dL (0.5-1.5); MAGNESIUM 1.8 mg/dL (1.80-2.40); POTASSIUM 4.7 mmol/L (3.5-5.1); TOTAL PROTEIN, SERUM 4.7 g/dL (6.0-8.3)
[2020-11-02] MEDS: URSODIOL 300 MG CAPSULE PEG SCH ×3 (13:06→21:34)
[2020-11-02] MEDS: ZOSYN 3.375GM+NS 50ML 50 ML IV SCH ×3 (13:06→20:04)
[2020-11-02 13:18] LABS: ABG BASE EXCESS -2.6 mmol/L (-2.0-3.0); ABG HCO3 22.3 mmol/L (21.0-28.0); ABG PCO2 39 mmHg (35-48)
[2020-11-02] MEDS ORDERED: SODIUM BICARB 50MEQ 50ML VIAL 50 ML ONE (13:24)
[2020-11-02] MEDS ORDERED: CALCIUM GLUC 1GM/10ML VIAL IV ONE (13:25)
[2020-11-02 13:43] LABS: BAND NEUTROPHILS % (MANUAL) 3 % (0-2); LYMPHOCYTES % (MANUAL) 8 % (22-44); MAN.DIFF COMMENT-IMPRESSION MANUAL DIFFERENTIAL; METAMYELOCYTES % 1 % (0-0); MONOCYTES % (MANUAL) 8 % (2-9); MYELOCYTES % 1 % (0-0); PROMYELOCYTES % 2 (0-0); SEGMENTED NEUTROPHILS % 77 % (40-70)
[2020-11-02 13:46] LABS: PLATELET MORPHOLOGY COMMENT SLIGHTLY DECREASED
[2020-11-02] MEDS: MAGNESIUM 2GM PREMIX 50ML 50 ML IV PRN (14:50)
[2020-11-02 15:35] LABS: ABG BASE EXCESS 0.4 mmol/L (-2.0-3.0); ABG HCO3 25.4 mmol/L (21.0-28.0); ABG OXYGEN SATURATION 76.6 % (95.0-99.0); ABG PCO2 43 mmHg (35-48)
[2020-11-02 16:30] LABS: BASOPHILS % (AUTO) 0.4 % (0.0-5.0); EOSINOPHILS % (AUTO) 2.6 % (0.0-8.0); LYMPHOCYTES % (AUTO) 9.1 % (21.0-51.0); MEAN CORPUSCULAR HEMOGLOBIN 28.5 pg (27.0-33.0); MEAN CORPUSCULAR HGB CONC 33.8 g/dL (32.0-36.0); MEAN CORPUSCULAR VOLUME 84.5 fL (79-99); MONOCYTES % (AUTO) 7.9 % (3.0-13.0); NEUTROPHILS % (AUTO) 58.6 % (40.0-77.0); NUCLEATED RED BLOOD CELLS 31.8 % (0.0-0.19); PLATELET COUNT (AUTO) 103 K/uL (130-400); RED BLOOD CELL COUNT(AUTO) 2.84 MIL/uL (4.50-6.20); WHITE BLOOD COUNT (AUTO) 24.3 K/uL (4.8-10.8)
[2020-11-02 16:47] LABS: INR 1.17 (0.85-1.15); PROTHROMBIN TIME 12.6 SEC (9.6-11.6)
[2020-11-02 16:48] LABS: PARTIAL THROMBOPLASTIN TIME 29.5 SEC (26.3-35.5)
[2020-11-02 16:58] LABS: ALBUMIN 2.3 g/dL (3.5-5.0); BILIRUBIN,TOTAL 5.5 mg/dL (0.2-1.0); CREATININE 2.2 mg/dL (0.5-1.5); PHOSPHORUS 8.5 mg/dL (2.5-4.9); POTASSIUM 4.7 mmol/L (3.5-5.1); TOTAL PROTEIN, SERUM 4.8 g/dL (6.0-8.3)
[2020-11-02] MEDS ORDERED: MEROPENEM 1 GM VIAL IVP SCH (17:00)
[2020-11-02] MEDS ORDERED: MEROPENEM 1 GM VIAL ONE (17:05)
[2020-11-02 17:08] LABS: ABG HCO3 23.5 mmol/L (21.0-28.0); ABG OXYGEN SATURATION 78.8 % (95.0-99.0); ABG PCO2 44 mmHg (35-48)
[2020-11-02] MEDS ORDERED: COMPOUND IV MISC 1 EACH IVSOLN MISC PRN (18:00)
[2020-11-02] MEDS ORDERED: DEXTROSE 50%-WATER 50 ML DISP.SYRIN IV ONE (18:08)
[2020-11-02 18:28] LABS: ABG BASE EXCESS 0.4 mmol/L (-2.0-3.0); ABG HCO3 25.5 mmol/L (21.0-28.0); ABG OXYGEN SATURATION 68.4 % (95.0-99.0); ABG PCO2 44 mmHg (35-48)
[2020-11-02] MEDS: NOREPINEPHRINE BITARTRATE 8 MG in DEXTROSE 5%-WATER 250 ML IV PRN (19:54)
[2020-11-02] MEDS: FUROSEMIDE 40MG VIAL IV SCH (20:00)
[2020-11-02] MEDS: ATORVASTATIN 20 MG TABLET PEG SCH (20:01)
[2020-11-02] MEDS: DEXTROSE 50%-WATER 25 GM/50 ML VIAL IV SCH (20:02)
[2020-11-02 20:23] LABS: ABG HCO3 25.7 mmol/L (21.0-28.0); ABG OXYGEN SATURATION 75.7 % (95.0-99.0); ABG PCO2 41 mmHg (35-48)
[2020-11-02] MEDS ORDERED: CACL 1GM SYG IVP SCH (20:30)
[2020-11-02] MEDS: CACL 1GM SYG IVP SCH (20:41)
[2020-11-02] MEDS ORDERED: NACL IV ONE (20:49)
[2020-11-02] MEDS: FLUCONAZOLE 400 MG/NS 200 ML 200 ML IV SCH (21:36)
[2020-11-02] MEDS: INSULIN HUMULIN R 100 UNIT/ML 3ML IV SCH (21:43)
[2020-11-02] MEDS ORDERED: LEVETIRACETAM 250 MG in 0.9%NACL 100ML 100 ML IV SCH (22:00)
[2020-11-02 22:03] LABS: ABG BASE EXCESS 1.7 mmol/L (-2.0-3.0); ABG HCO3 26.9 mmol/L (21.0-28.0); ABG OXYGEN SATURATION 71.1 % (95.0-99.0); ABG PCO2 45 mmHg (35-48)
[2020-11-02 22:23] LABS: BASOPHILS % (AUTO) 0.8 % (0.0-5.0); EOSINOPHILS % (AUTO) 2.4 % (0.0-8.0); MEAN CORPUSCULAR HEMOGLOBIN 28.4 pg (27.0-33.0); MEAN CORPUSCULAR HGB CONC 33.5 g/dL (32.0-36.0); MEAN CORPUSCULAR VOLUME 84.9 fL (79-99); MONOCYTES % (AUTO) 7.1 % (3.0-13.0); NEUTROPHILS % (AUTO) 60.9 % (40.0-77.0); PLATELET COUNT (AUTO) 133 K/uL (130-400); RED BLOOD CELL COUNT(AUTO) 2.71 MIL/uL (4.50-6.20); RED CELL DISTRIBUTION WIDTH 16.5 % (11.0-15.5); WHITE BLOOD COUNT (AUTO) 23.7 K/uL (4.8-10.8)
[2020-11-02 22:40] LABS: INR 1.72 (0.85-1.15); PROTHROMBIN TIME 17.8 SEC (9.6-11.6)
[2020-11-02 22:41] LABS: PARTIAL THROMBOPLASTIN TIME 28.7 SEC (26.3-35.5)
[2020-11-02 22:43] LABS: ALBUMIN 2.7 g/dL (3.5-5.0); CREATININE 2.2 mg/dL (0.5-1.5); POTASSIUM 4.6 mmol/L (3.5-5.1)
[2020-11-02] MEDS ORDERED: SYRING IVP SCH (23:15)
[2020-11-02] MEDS ORDERED: SODIUM BICARB 8.4% IVP SCH (23:15)
[2020-11-02] MEDS ORDERED: DEXTROSE 5% IVP SCH (23:15)
[2020-11-02] MEDS ORDERED: WATER IVP SCH (23:15)
[2020-11-02] MEDS ORDERED: DOPAMINE 800MG/D5 250ML 250 ML IV ONE (23:44)
[2020-11-02] MEDS ORDERED: DOPAMINE 800MG/D5 250ML 250 ML IV PRN (23:45)
[2020-11-03] MEDS ORDERED: FUROSEMIDE 40MG VIAL ONE (00:01)
[2020-11-03] MEDS ORDERED: FUROSEMIDE 20MG VIAL ONE (00:03)
[2020-11-03 00:04] LABS: ABG BASE EXCESS -6.7 mmol/L (-2.0-3.0); ABG HCO3 22.6 mmol/L (21.0-28.0); ABG PCO2 68 mmHg (35-48)
[2020-11-03] MEDS ORDERED: VASOPRESSIN 20 UNITS/ML 1ML VIAL ONE (00:12)
[2020-11-03] MEDS ORDERED: EPINEPHRINE PF 1MG AMP ONE (00:13)
[2020-11-03] MEDS ORDERED: EPINEPHRINE 1MG SYG 10ML ONE (00:17)
[2020-11-03 00:19] LABS: ABG BASE EXCESS 4.2 mmol/L (-2.0-3.0); ABG HCO3 33.5 mmol/L (21.0-28.0); ABG PCO2 88 mmHg (35-48)
[2020-11-03] MEDS ORDERED: ATROPINE 1MG SYG IVP ONE (00:29)
[2020-11-03 00:43] LABS: BASOPHILS % (AUTO) 0.3 % (0.0-5.0); EOSINOPHILS % (AUTO) 1.9 % (0.0-8.0); HEMATOCRIT 26.5 % (42-54); MEAN CORPUSCULAR HEMOGLOBIN 27.9 pg (27.0-33.0); MEAN CORPUSCULAR HGB CONC 31.3 g/dL (32.0-36.0); MEAN CORPUSCULAR VOLUME 88.9 fL (79-99); MONOCYTES % (AUTO) 7.2 % (3.0-13.0); NEUTROPHILS % (AUTO) 52.3 % (40.0-77.0); NUCLEATED RED BLOOD CELLS 33.8 % (0.0-0.19); PLATELET COUNT (AUTO) 136 K/uL (130-400); RED BLOOD CELL COUNT(AUTO) 2.98 MIL/uL (4.50-6.20); RED CELL DISTRIBUTION WIDTH 16.6 % (11.0-15.5); WHITE BLOOD COUNT (AUTO) 25.2 K/uL (4.8-10.8)
[2020-11-03 00:49] LABS: INR 1.97 (0.85-1.15); PROTHROMBIN TIME 20.2 SEC (9.6-11.6)
[2020-11-03 00:50] LABS: PARTIAL THROMBOPLASTIN TIME 25.1 SEC (26.3-35.5)
[2020-11-03 01:01] LABS: ALBUMIN 2.4 g/dL (3.5-5.0); CREATININE 2.8 mg/dL (0.5-1.5); TOTAL PROTEIN, SERUM 4.7 g/dL (6.0-8.3)
[2020-11-03 01:04] LABS: POTASSIUM 6.1 mmol/L (3.5-5.1)
[2020-11-03] MEDS ORDERED: SYRING IVP SCH (05:00)
[2020-11-03] MEDS ORDERED: SODIUM BICARB 8.4% IVP SCH (05:00)
[2020-11-03] MEDS ORDERED: DEXTROSE 5% IVP SCH (05:00)
[2020-11-03] MEDS ORDERED: WATER IVP SCH (05:00)
== END 2020-11-03 00:30 | disposition expired | DRG 853 ==
LOC: UNDOADMIN 08:01 → 2DH 08:01
PROVIDERS: ADMIT Internal Medicine Pulmonary Disease; ATTEND Internal Medicine Pulmonary Disease
PROC: 5A1955Z Respiratory Ventilation, Greater than 96 Consecutive Hours (ICD-10-PCS; principal; 2020-10-27)
PROC: 02HV33Z Insertion of Infusion Device into Superior Vena Cava, Percutaneous Approach (ICD-10-PCS; 2020-10-27)
PROC: 0DP6XUZ Removal of Feeding Device from Stomach, External Approach (ICD-10-PCS; 2020-11-01)
PROC: 0DQ Gastrointestinal System, Repair (ICD-10-PCS; 2020-11-01 16:45)
PROC: 0DH60UZ Insertion of Feeding Device into Stomach, Open Approach (ICD-10-PCS; 2020-11-01 16:45)
DX: A41.9 Sepsis, unspecified organism (principal); J96.21 Acute and chronic respiratory failure with hypoxia; U07.1 COVID-19; J12.82 Pneumonia due to coronavirus disease 2019; K65.1 Peritoneal abscess; R65.21 Severe sepsis with septic shock; K72.00 Acute and subacute hepatic failure without coma; S36.531A Laceration of transverse colon, initial encounter; Z99.11 Dependence on respirator [ventilator] status; T79.7XXA Traumatic subcutaneous emphysema, initial encounter; D62 Acute posthemorrhagic anemia; G93.40 Encephalopathy, unspecified; K94.22 Gastrostomy infection; B49 Unspecified mycosis; Z68.42 Body mass index [BMI] 45.0-49.9, adult; D68.9 Coagulation defect, unspecified; R18.8 Other ascites; I96 Gangrene, not elsewhere classified; X58.XXXA Exposure to other specified factors, initial encounter; L89.152 Pressure ulcer of sacral region, stage 2; J84.10 Pulmonary fibrosis, unspecified; I46.9 Cardiac arrest, cause unspecified; L98.429 Non-pressure chronic ulcer of back with unspecified severity; R53.81 Other malaise; E66.9 Obesity, unspecified; E87.70 Fluid overload, unspecified; R13.12 Dysphagia, oropharyngeal phase; Z53.9 Procedure and treatment not carried out, unspecified reason; Y93.89 Activity, other specified; Y92.89 Other specified places as the place of occurrence of the external cause; Y99.8 Other external cause status; Z74.01 Bed confinement status; Z87.01 Personal history of pneumonia (recurrent); Z66 Do not resuscitate; Z93.0 Tracheostomy status
CPT/HCPCS: 36415; 36430; 36600; 71045; 74160; 74176; 76705; 80048; 80053; 80202; 82140; 82435; 82728; 82803; 82947; 82948; 83605; 83615; 83735; 84100; 84132; 84145; 84295; 85014; 85018; 85025; 85027; 85378; 85384; 85610; 85730; 86850; 86900; 86901; 86923; 86927; 87040; 87070; 87071; 87076; 87077; 87088; 87186; 87205; 87426; 92950; 94002; 94003; A4344; A4357; C1751; C1894; J0171; J0330; J0461; J0610; J0692; J1100; J1265; J1450; J1650; J1815; J1940; J1953; J1956; J2001; J2185; J2250; J2370; J2405; J2543; J2704; J2710; J2930; J3010; J3370; J3475; J3490; J7030; J7040; J7050; J7060; J7070; J7120; J7189; P9012; P9016; P9017; P9034; P9045; P9046; Q9963; U0003